=== PATIENT | female | born 1960 | race Caucasian/White ===

== ENCOUNTER 2018-11-16 10:16 | Outpatient (CLI) | payer OTHER ==
--- NOTE | 2018-11-16 11:06 | MMO ---
Bilateral MAMMO Bilat Screen [facility]. CLINICAL HISTORY: Patient is 58 years old and is seen for screening. The patient has no family history of breast cancer. The patient has no personal history of cancer. The patient has a history of bilateral mastopexy in 2009 and bilateral Breast reduction in 2009. VIEWS: The views performed were: bilateral craniocaudal with tomosynthesis and bilateral mediolateral oblique with tomosynthesis. FILMS COMPARED: The present examination has been compared to a prior imaging study performed at [facility] on 05/08/2016. MAMMOGRAM FINDINGS: There are scattered fibroglandular densities. There are stable benign appearing calcifications seen in both breasts. There are no suspicious masses, suspicious calcifications, or new areas of architectural distortion. IMPRESSION: THERE IS NO MAMMOGRAPHIC EVIDENCE OF MALIGNANCY. A ROUTINE FOLLOW-UP MAMMOGRAM IN 1 YEAR IS RECOMMENDED. THE RESULTS OF THIS EXAM WERE SENT TO THE PATIENT. ACR BI-RADS Category 2 - Benign finding MAMMOGRAPHY NOTE: 1. A negative mammogram report should not delay a biopsy if a dominant of clinically suspicious mass is present. 2. Approximately 10% to 15% of breast cancers are not detected by mammography. 3. Adenosis and dense breasts may obscure an underlying neoplasm.
--- NOTE | 2018-11-16 11:09 | BD ---
EXAM: Bone densitometry using DEXA HISTORY: 58 yo female. Screening for postmenopausal osteoporosis FINDINGS: L1--bone mineral density 0.929 g/sq cm; T score -0.6 ; Z score 0.7 L2--bone mineral density 1.001 g/sq cm; T score -0.2 ; Z score 1.2 L3--bone mineral density 1.040 g/sq cm; T score -0.4 ; Z score 1.1 L4--bone mineral density 1.020 g/sq cm; T score -0.4 ; Z score 1.2 Total L1-L4--bone mineral density 1.000 g/sq cm; T score -0.4 ; Z score 1.0 Left femoral neck--bone mineral density0.625; T score -2.0 ; Z score -0.7 Total proximal left femur--bone mineral density 0.795; T score -1.2 ; Z score -0.2 The 10 year fracture risk for a major osteoporotic fracture is 8.5% and for a hip fracture is 1%. IMPRESSION: Osteopenia.
--- NOTE | 2018-11-16 12:13 | RAD ---
RIGHT KNEE TWO VIEWS: History: Right knee pain. FINDINGS: Complete loss of joint space of the medial compartment with osteophytosis and subchondral sclerosis. Genu varus. Small amount of fluid distends the suprapatellar bursa. Tricompartmental osteophytosis. N o acute fracture, dislocation, or aggressive osseous erosions. IMPRESSION: Prominent degenerative changes with complete loss of joint space at the medial compartment. POS: [facility]
--- NOTE | 2018-11-16 12:14 | RAD ---
RIGHT HAND THREE VIEWS: History: Right hand pain. FINDINGS: Very mild joint space narrowing and osteophytosis of the first carpal metacarpal joint and distal int erphalangeal joint. No acute fracture, dislocation or aggressive osseous erosions. IMPRESSION: Very mild osteoarthritic changes right hand. POS: [facility]
--- NOTE | 2018-11-16 12:16 | RAD ---
LEFT KNEE TWO VIEWS: History: Left knee pain. FINDINGS: Complete loss of joint space at the medial compartment with genu varus. Cortical remodeling of the ar ticular surface at the medial compartment. Prominent tricompartmental osteophytosis. Small amount of fluid within the suprapatellar bursa on the lateral view. No acute fracture, dislocation, or aggressi ve osseous erosions. IMPRESSION: Osteoarthritic changes, most severe at the medial compartment with complete loss of joint space. Smal l joint effusion. POS: [facility]
--- NOTE | 2018-11-16 12:17 | RAD ---
LEFT HAND THREE VIEWS: History: Left hand pain. FINDINGS: Very mild joint space narrowing and osteophytosis of the first carpal metacarpal joint and the distal interphalangeal joints. Mild ulnar negative variant. No acute fracture, dislocation, or aggressive o sseous erosions. IMPRESSION: Very mild osteoarthritic changes, left hand. POS: TPC
== END 2018-11-16 10:17 | disposition home or self-care (01) ==
LOC: BICMAMMO 10:16
PROVIDERS: ATTEND Internal Medicine
DX: Z12.31 Encounter for screening mammogram for malignant neoplasm of breast (principal); M85.89 Other specified disorders of bone density and structure, multiple sites; M79.89 Other specified soft tissue disorders; M25.561 Pain in right knee; M25.562 Pain in left knee; M79.641 Pain in right hand; M79.642 Pain in left hand; M19.041 Primary osteoarthritis, right hand; M19.042 Primary osteoarthritis, left hand; M17.0 Bilateral primary osteoarthritis of knee; M25.462 Effusion, left knee
CPT/HCPCS: 77063; 77067; 77080

== ENCOUNTER 2022-03-06 11:16 | Outpatient (CLI) | payer BC | END 2022-03-06 11:17 | disposition home or self-care (01) | LOC: BICMAMMO 11:16 | PROVIDERS: ATTEND Internal Medicine | DX: Z12.31 Encounter for screening mammogram for malignant neoplasm of breast (principal); Z98.890 Other specified postprocedural states; Z80.3 Family history of malignant neoplasm of breast | CPT/HCPCS: 77063; 77067 ==